=== PATIENT | female | born 1975 | race Hispanic/Latino ===

== ENCOUNTER 2018-03-29 11:51 | Emergency (ER) | payer BC ==
[2018-03-29 13:24] LABS: APPEARANCE,URINE TURBID (CLEAR); BILIRUBIN,URINE MODERATE (NEGATIVE); COLOR,URINE BROWN (YELLOW); GLUCOSE, URINE (UA) NEGATIVE (NEGATIVE); KETONES,URINE 5 mg/dL (NEGATIVE); LEUKOCYTE ESTERASE ,URINE LARGE (NEGATIVE); NITRATE,URINE POSITIVE (NEGATIVE); OCCULT BLOOD,URINE LARGE (NEGATIVE); PH,URINE 6.5 (5.0-8.0); PROTEIN,URINE 100 (NEGATIVE)
[2018-03-29 13:26] LABS: HCG,QUAL RESULT NEGATIVE (NEGATIVE)
[2018-03-29 13:29] LABS: WBC,URINE TNTC /HPF (0-1)
[2018-03-29 13:30] LABS: BACTERIA,URINE Many /HPF (None Seen); MUCUS,URINE Few LPF (None Seen); RBC,URINE >100 /HPF (0-1); SQUAMOUS EPITHELIAL CELL,UR Few /HPF (0-2)
[2018-03-29] MEDS ORDERED: HYDROXYZINE HCL 25 MG TABLET ONE (13:31)
[2018-03-29] MEDS ORDERED: LIDOCAINE HCL-MPF 1% 2ML VIAL ONE (13:43)
[2018-03-29] MEDS ORDERED: CEFTRIAXONE SODIUM 1 GM ONE (13:43)
== END 2018-03-29 13:57 | disposition home or self-care (01) ==
LOC: EDH 11:51
DX: F41.1 Generalized anxiety disorder (principal); N39.0 Urinary tract infection, site not specified; I10 Essential (primary) hypertension
CPT/HCPCS: 81001; 81025; 87077; 87088; 87186; 96372; 99285; J0696; J3490